=== PATIENT | female | born 1995 | race American Indian/Alaskan Native ===

== ENCOUNTER 2021-09-20 16:20 | Emergency (ER) | payer MEDICAID ==
[2021-09-20 17:17] VITALS: BP 132/93
--- NOTE | 2021-09-20 22:28 | Emergency Department Report ---
Chief Complaint: Vaginal Bleeding Stated Complaint: VAGINA BLEEDING - HPI History of Present Illness: 25-year-old female presents to the ED for a STD screening. Patient state she went to urgent care center for a STD panel and was told to come to the ED. instruct the patient that we do not do STD testing in the ED. patient states that she will follow-up with her [facility] doctor. She did not wish to be seen in the ED. patient is alert and oriented x3. No acute distress noted. No ill appearance noted. Patient will be MSE screened out. - Exam Vital Signs: Vital Signs 09/20/21 17:14 Temperature 98.9 F Pulse Rate 72 Respiratory 18 Rate Blood Pressure 132/93 [Right] O2 Sat by Pulse 97 Oximetry MSE screening note: Focused history and physical exam performed. Due to findings the following was ordered: ED Medical Decision Making - Medical Decision Making 25-year-old female presents to the ED for a STD screening. Patient state she went to urgent care center for a STD panel and was told to come to the ED. instruct the patient that we do not do STD testing in the ED. patient states that she will follow-up with her [facility] doctor. She did not wish to be seen in the ED. patient is alert and oriented x3. No acute distress noted. No ill appearance noted. Patient will be MSE screened out. ED Disposition for MSE Clinical Impression: Screen for STD (sexually transmitted disease) Disposition: HOME / SELF CARE / HOMELESS Condition: Stable Additional Instructions: Patient Mse screen out. Patient did not wish to be further evaluated Referrals: DERICK SEPULVEDA MD [Primary Care Provider] - 3-5 Days
== END 2021-09-20 18:00 | disposition home or self-care (01) ==
LOC: ED 16:20
DX: Z11.3 Encounter for screening for infections with a predominantly sexual mode of transmission (principal)
CPT/HCPCS: 99281